=== PATIENT | female | born 1995 | race Caucasian/White ===

== ENCOUNTER 2025-04-24 01:04 | Emergency (ER) | payer OTHER ==
[~2025-04-24] VITALS: Ht 177.8 cm; Wt 73.0 kg
[2025-04-24 01:13] VITALS: O2SAT 99
[2025-04-24 01:53] LABS: BASOPHILS % 0.4 % (0.0-2.0); HEMATOCRIT. 36.9 % (36.0-48.0); HEMOGLOBIN. 12.4 g/dL (12.0-16.0); LYMPHOCYTES % 14.3 % (20.0-50.0); MEAN CORPUSCULAR HEMOGLOBIN 29.2 pg (28.0-32.0); MEAN CORPUSCULAR HGB CONC 33.6 g/dL (31.0-37.0); MEAN CORPUSCULAR VOLUME 87.1 fL (81.0-99.0); MEAN PLATELET VOLUME 9.5 fl (7.4-10.4); MONOCYTES % 6.7 % (2.0-8.0); NEUTROPHILS % 77.6 % (40.0-76.0); PLATELET 326 x1000/uL (130-400); RED BLOOD CELL COUNT 4.24 mill/uL (4.2-5.4); RED CELL DISTRIBUTION WIDTH 13.5 % (11.6-14.6); WHITE BLOOD COUNT 13.5 x1000/uL (4.5-11.0)
[2025-04-24 02:01] LABS: CHLORIDE 106 mEq/L (98-107); POTASSIUM 3.4 mEq/L (3.5-5.1); SODIUM 143 mEq/L (136-145)
[2025-04-24 02:02] LABS: CALCIUM 9.2 mg/dL (8.7-10.4); CARBON DIOXIDE 29 mEq/L (21-32)
[2025-04-24 02:07] LABS: CREATININE 0.8 mg/dL (0.6-1.0); GLUCOSE 108 mg/dL (70-105); UREA NITROGEN BLOOD 11 mg/dL (9-23)
[2025-04-24 02:09] LABS: ALANINE AMINOTRANSFERASE 33 IU/L (10-49); ALBUMIN 4.2 g/dL (3.2-4.8); ASPARTATE AMINOTRANSFERASE 66 IU/L (<34); BILIRUBIN DIRECT 0.2 mg/dL (<=3.0); BILIRUBIN TOTAL 0.5 mg/dL (0.1-1.0); PROTEIN TOTAL 6.8 g/dL (6.0-8.3)
[2025-04-24] MEDS: ONDANSETRON HCL 4MG/2ML INJ IV ONE (03:33)
[2025-04-24] MEDS: MORPHINE SULFATE 4 MG/ML INJ (FOR IV/IM USE) IV STA (03:35)
[2025-04-24] MEDS: SODIUM CHLORIDE 0.9% 1,000 ML IV ONE (03:38)
[2025-04-24 04:41] LABS: HCG SCREEN NEGATIVE
[2025-04-24] MEDS ORDERED: ONDA4TAB50 MT (05:29)
[2025-04-24] MEDS ORDERED: IBUP-2029 MT (05:29)
[2025-04-24 06:00] VITALS: BP 107/60; PULSE 87; RESP 13; TEMP 36.6; O2SAT 98
== END 2025-04-24 06:11 | disposition home or self-care (01) ==
LOC: ER 01:04
DX: K80.20 Calculus of gallbladder without cholecystitis without obstruction (principal); Z79.899 Other long term (current) drug therapy; R51.9 Headache, unspecified; R10.9 Unspecified abdominal pain
CPT/HCPCS: 99285; 74177; 96374; 76705; 96361; 96375; 80076; 80048; 84703; 83690; 85025; 85610; 36415; Q9967; J2405; J2270; J7030